=== PATIENT | female | born 1960 | race Caucasian/White ===

== ENCOUNTER 2024-04-27 17:32 | Emergency (ER) | payer MEDICARE, OTHER ==
[~2024-04-27 17:32] MED LIST: Iopamidol-370 76% 500 ML MDV (1 ML CHARGE) ONE
[2024-04-27 18:14] LABS: #Basophils 0.03 10x3/uL (0.0-0.2); #Eosinophils Less than 0.03 10x3/uL (0.0-0.7); %Basophils 0.2 % (0.0-1.0); %Eosinophils 0.1 % (0.0-10.0); %Lymphocytes 2.6 % (21.0-51.0); %Monocytes 7.1 % (0.0-10.0); %Neutrophils 89.6 % (42.0-75.0); Hematocrit 38.2 % (36.0-47.0); Hemoglobin 11.8 g/dL (12.0-16.0); Mean Corpuscular HGB CONC 30.9 g/dL (32.0-36.0); Mean Corpuscular Volume 97.2 fL (78.0-98.0); Mean Platelet Volume 9.5 fL (7.4-10.4); Platelet Count 208 10x3/uL (130-400); RBC Distribution Width 13.4 % (11.5-14.5); Red Blood Cell (RBC) Count 3.93 mill/uL (4.20-5.40)
[2024-04-27 18:34] LABS: ALT (SGPT) 13 U/L (Less than 34); AST (SGOT) 15 U/L (11-34); Albumin 2.9 g/dL (3.1-4.5); Alkaline Phosphatase 78 U/L (40-110); Anion Gap 13 mmol/L (10-20); BUN (Urea Nitrogen) 15 mg/dL (9.8-20.1); Bilirubin, Total 0.4 mg/dL (0.3-1.2); Calc. Creatinine Clearance 0 mL/min (70-130); Calcium 8.3 mg/dL (7.8-10.44); Carbon Dioxide 27 mmol/L (23-31); Chloride 103 mmol/L (98-107); Estimated GFR 86; Globulin 3.5 g/dL (2.4-3.5); Glucose 149 mg/dL (80-115); Potassium 3.2 mmol/L (3.5-5.1); Protein, Total 6.4 g/dL (5.8-8.1); Sodium 140 mmol/L (136-145)
[2024-04-27] MEDS ORDERED: cefTRIAXone (ROCEPHIN) 2 GM VIAL ONE (19:10)
[2024-04-27] MEDS ORDERED: Sodium Chloride 0.9% 100 ML ONE (19:10)
[2024-04-27] MEDS ORDERED: Ketorolac Tromethamine 30 MG (1 mL) VIAL ONE (19:10)
[2024-04-27] MEDS ORDERED: Ondansetron PF 4 MG/2 ML Vial ONE (19:10)
[2024-04-27 20:00] LABS: Bacteria/HPF None Seen HPF (None Seen); Bilirubin Negative (Negative); Blood, Urine 1+ (Negative); CAUTI Indications for Culture Fever or rigors; Clarity Clear (Clear); Glucose, Urine (Dipstick) Normal (Negative); Ketone, Urine 10 mg/dL (Negative); Leukocyte 250 Leu/uL (Negative); Nitrite Negative (Negative); Protein, Urine (Dipstick) 20 mg/dL (Neg-Trace); RBC/HPF 0-3 HPF (0-3); Specific Gravity, Urine 1.017 (1.002-1.036); Squamous Epithelial 0-3 HPF (0-3); Urobilinogen Normal mg/dL (Less than 2)
[2024-04-27 20:01] LABS: Urine Culture Reflex Yes Yes
[2024-04-27] MEDS ORDERED: Potassium Chloride 20 MEQ TAB ONE (20:27)
== END 2024-04-27 22:00 | disposition home or self-care (01) ==
LOC: ERS 17:32
DX: N39.0 Urinary tract infection, site not specified (principal); E87.6 Hypokalemia; I10 Essential (primary) hypertension; J44.9 Chronic obstructive pulmonary disease, unspecified; Z87.891 Personal history of nicotine dependence
CPT/HCPCS: 71045; 74177; 80053; 81001; 85025; 87040; 87086; 94760; J0696; J1885; J2405; 36415; 87149; 96365; 96375